=== PATIENT | male | born 2000 | race Caucasian/White ===

== ENCOUNTER 2024-07-18 22:14 | Emergency (ER) | payer MEDICAID | END 2024-07-19 00:45 | disposition home or self-care (01) | LOC: MW.ED 22:14 | DX: S60.211A Contusion of right wrist, initial encounter (principal); S20.211A Contusion of right front wall of thorax, initial encounter; Z88.1 Allergy status to other antibiotic agents; Z88.0 Allergy status to penicillin; Z88.8 Allergy status to other drugs, medicaments and biological substances; V86.99XA Unspecified occupant of other special all-terrain or other off-road motor vehicle injured in nontraffic accident, initial encounter | CPT/HCPCS: 71046; 71046-26; 73030-26-RT; 73030-RT; 73110-26-RT; 73110-RT; 99284 ==